=== PATIENT | male | born 1985 | race Caucasian/White ===

== ENCOUNTER 2022-12-06 06:54 | Day surgery (SDC) | payer OTHER, SELFPAY ==
[2022-12-06] VITALS (13 sets, daily range): BP systolic 106–164; BP diastolic 66–105; PULSE 66–98; RESP 12–26; TEMP 36.7–36.8; O2SAT 92–98; BMI 34.0
[2022-12-06 07:12] LABS: Basophils Percent Auto 0.5 % (0.2-2.0); Eosinophils Percent Auto 0.7 % (0.9-7.0); Hematocrit 46.9 % (42.0-54.0); Hemoglobin 16.2 g/dL (14.0-18.0); Immature Granulocytes Abs Auto 0.01 10^3/uL (0.00-0.03); Immature Granulocytes Pct Auto 0.2 % (0.0-0.5); Lymphocytes Absolute Auto 2.8 10^3/uL (1.2-3.8); Lymphocytes Percent Auto 47.4 % (20.5-60.0); Mean Corpuscular HGB Conc 34.5 g/dL (29.9-35.2); Mean Corpuscular Hemoglobin 28.7 pg (25.9-34.0); Mean Platelet Volume 10.3 fL (9.5-13.5); Monocytes Absolute Auto 0.6 10^3/uL (0.3-0.8); Monocytes Percent Auto 9.3 % (1.7-12.0); Neutrophils Absolute Auto 2.5 10^3/uL (1.4-6.5); Neutrophils Percent Auto 41.9 % (43.0-75.0); Nucleated Red Blood Cells 0; Platelet Count 223 10^3/uL (150-450); Red Blood Count 5.65 10^6/uL (4.70-6.10); Red Cell Distribution Width 11.6 % (11.0-15.0); White Blood Count 5.9 10^3/uL (4.0-11.0)
[2022-12-06] MEDS: LACTATED RINGER'S SOLUTION 1,000 ML 50 ML IV (07:56)
--- NOTE | 2022-12-06 09:09 | PC.NURSE ---
Popliteal/ Saphaneous block started at 0849 and completed at 0859; procedure tolerated well
[2022-12-06] MEDS: CEFAZOLIN SODIUM/DEXTROSE,ISO 2 GM/50 ML PIGGYBACK IV (09:37)
--- NOTE | 2022-12-06 10:17 | XR_ITS ---
The [address] [address] Patient Name: BALTA OVIEDO MRN: [id number] date: 1985 Sex: M Assigned Patient Location: [facility] Current Patient Location: [facility] Accession/Order Number: [id number] Exam Date: 12/06/2022 12:30 Report Date: 12/06/2022 12:56 At the request of: MALA ARENAS Procedure: XR ankle RT min 3V PROCEDURE: XR ankle RT min 3V, XR foot RT min 3V HISTORY: stj fusion, post-op COMPARISON: XR ankle right 11/14/2022 FINDINGS: BONES:Talocalcaneal fusion via 2 lag screws. No hardware fracture or bone fracture. SOFT TISSUES:Subcutaneous air within posterior soft tissues consistent with recent surgery. Images were obtained to cast material. EFFUSION:None visible. OTHER: Negative. IMPRESSION: 1. Postop talocalcaneal fusion. Electronically authenticated by: SARAH HOLM Date: 12/06/2022 12:56
--- NOTE | 2022-12-06 10:17 | XR_ITS ---
The [address] [address] Patient Name: BALTA OVIEDO MRN: [id number] date: 1985 Sex: M Assigned Patient Location: [facility] Current Patient Location: [facility] Accession/Order Number: [id number] Exam Date: 12/06/2022 12:30 Report Date: 12/06/2022 12:56 At the request of: MALA ARENAS Procedure: XR foot RT min 3V PROCEDURE: XR ankle RT min 3V, XR foot RT min 3V HISTORY: stj fusion, post-op COMPARISON: XR ankle right 11/14/2022 FINDINGS: BONES:Talocalcaneal fusion via 2 lag screws. No hardware fracture or bone fracture. SOFT TISSUES:Subcutaneous air within posterior soft tissues consistent with recent surgery. Images were obtained to cast material. EFFUSION:None visible. OTHER: Negative. IMPRESSION: 1. Postop talocalcaneal fusion. Electronically authenticated by: SRAAH HOLM Date: 12/06/2022 12:56
--- NOTE | 2022-12-06 11:30 | XR_ITS ---
[place] [id number] Patient Name: BALTA OVIEDO MRN: [id number] date: 1985 Sex: M Assigned Patient Location: [facility] Current Patient Location: Accession/Order Number: [id number] Exam Date: 12/06/2022 10:30 Report Date: 12/06/2022 15:12 At the request of: HAYDE RAMIREZ Procedure: XR ankle RT 2V PROCEDURE: XR ankle RT 2V HISTORY: RIGHT SUBTALAR JOINT FUSION COMPARISON: XR ankle right 11/14/2022 FINDINGS: BONES:Multiple intraoperative spot fluoroscopic images demonstrate posterior talocalcaneal fusion via 2 lag screws. SOFT TISSUES:Expected intraoperative findings. IMPRESSION: 1. Posterior talocalcaneal fusion. Electronically authenticated by: SARAH HOLM Date: 12/06/2022 15:12
[2022-12-06] MEDS: ONDANSETRON 4 MG RAPDIS TABLET SL (13:30)
--- NOTE | 2022-12-06 13:54 | PM.ORONB ---
Brief Operative Note Date of procedure: 12/06/22 Pre-op diagnosis: right subtalar joint arthritis, posterior ankle impingement & os trigonum Post-op diagnosis: same Procedure: Right subtalar joint fusion, excision of os trigonum, application of short leg splint and intraoperative fluoroscopy examination PROCEDURE IN DETAIL: Patient was identified in pre op and consent was reviewed. Correct side and site were identified and marked. Pre-op antibiotics were started. Patient was brought to OR suite and general anesthesia was administered. Tourniquet applied. then the patient was flipped onto the OR table in a well-padded prone position. Operative extremity was prepped and draped in usual sterile fashion. Formal time-out was performed and the foot/ankle were exsanguinated and tourniquet inflated. An incision on the posterior lateral ankle along the peroneal tendons and extending distal to the fibular malleolus was utilized. Combination of sharp and blunt dissection gained access to the subtalar joint while protecting all neurovascular and tendinous structures. All bleeders were tied off or cauterized. Hintermann distractor was used to access the subtalar joint which was prepped with curettes, osteotomes, rongeurs and drill with 2.0 mm drill.The posterior facet was thoroughly prepped. surgical site was irrigated with copious saline multiple times throughout the procedure. Then further dissection along the posterior aspect of the talus was performed any access to a large os trigonum which was isolated and removed with osteotomes and rongeurs while protecting the FHL tendon. Tissue excised during this procedure was passed back table to be sent as specimen to pathology. Sparc bone allograft was packed into the subtalar joint. The distractor was removed. a 3 cm incision was placed on the posterior heel and blunt dissection was taken down to the tuberosity of the calcaneus. Then two guidewires were placed from the tuberosity of the calcaneus across the subtalar joint into the talar body. These guidewires were placed under fluoroscopic guidance. Once position was confirmed on fluoroscopy a cannulated drill was used over the wires followed by 6.5 mm headless cannulated screws of appropriate length. Compression was noted across the subtalar joint and stable fixation was obtained. All sites were flushed with copious saline. Stab incisions and posterior heel incision were closed with nylon suture. The remaining incisions were closed in layers after. The tourniquet was dropped and a prompt hyperemic response was noted. A dry sterile dressing was then applied. A dry sterile dressing consisting of Xeroform on the incisions followed by 4 x 4 gauze, ABDs, and Kerlix were applied. Multiple layers of cast padding were then applied to ensure all bony prominences were well-padded. A plaster posterior splint was then applied which was held in place by Chava wraps. Capillary refill time to all digits was evaluated and had appropriate response. Postoperative plan: Discharge home under family's care Post op instructions provided verbally and written prescription(s) were placed in chart NWB operative foot/ankle x6-8 wks Follow-up in 1 week Implants: Medline 6.5 mm headless screws x2 Anesthesia: other (General & regional) Surgeon: Jaziel Grigsby Oncology Radiation Physician: Danny Joya Estimated blood loss (mL): 10 Pathology: other (os trigonum) Condition: stable Disposition: PACU Preoperative Details Surgery: Right subtalar joint fusion and os trigonum excision Reason for procedure: patient is a 37-year-old male who is had persistent and worsening pain for greater than one year associated with his right foot. He failed to respond to bracing, NSAIDs such as meloxicam and ibuprofen, shoe and activity modification. MRI was obtained which showed a large os trigonum with associated inflammation as well as bone marrow edema of the talus and calcaneus. Due to his failure to respond to nonsurgical care he wished to pursue surgical treatment and he was educated on potential risks and benefits which include but not limited to wound, infection, pain, bleeding, numbness and tingling, blood clot, painful hardware, delayed/nonunion, malunion, and need for additional surgery. Surgeon: Jaziel Grigsby DPM Associated symptoms: Reports none Use of anticoagulation agents: No Patient history: Reports none
[2022-12-06 14:52] LABS: Glucometer 126 mg/dL (74-106)
== END 2022-12-06 15:00 | disposition home or self-care (01) ==
PROVIDERS: PCP Podiatrist Foot & Ankle Surgery; Visit Provider Podiatrist Foot & Ankle Surgery
PROC: (CPT 28120; principal; 2022-12-06 09:30)
DX: M19.071 Primary osteoarthritis, right ankle and foot (principal); Q68.8 Other specified congenital musculoskeletal deformities; I10 Essential (primary) hypertension; M25.871 Other specified joint disorders, right ankle and foot
CPT/HCPCS: 28120; 28725; 36415; 36416; 64445; 64450; 73600; 73610; 73630; 76000; 76942; 82948; 85025; C1713; J1170; J2704

== ENCOUNTER 2022-12-26 09:09 | Outpatient (OUT) | payer OTHER, SELFPAY ==
--- NOTE | 2022-12-26 09:11 | XR_ITS ---
The [address] [address] Patient Name: BALTA OVIEDO MRN: [id number] date: 1985 Sex: M Assigned Patient Location: [facility] Current Patient Location: [facility] Accession/Order Number: [id number] Exam Date: 12/26/2022 09:15 Report Date: 12/26/2022 09:42 At the request of: MALA ARENAS Procedure: XR foot RT min 3V PROCEDURE: XR foot RT min 3V HISTORY: RIGHT FOOT PAIN COMPARISON: XR foot right 12/06/2022 FINDINGS: BONES:Posterior talocalcaneal fusion via 2 lag screws; no hardware fracture or loosening. No bone fracture or dislocation. SOFT TISSUES:No significant soft tissue swelling. Cast material has been removed. EFFUSION:None visible. OTHER: Negative. IMPRESSION: 1. Stable subtalar fusion without evidence of hardware failure or change in alignment. Electronically authenticated by: SARAH HOLM Date: 12/26/2022 09:42
== END 2022-12-26 09:10 ==
LOC: RAD 09:09
PROVIDERS: PCP Podiatrist Foot & Ankle Surgery; Visit Provider Student in an Organized Health Care Education/Training Program
DX: M19.071 Primary osteoarthritis, right ankle and foot (principal)
CPT/HCPCS: 73630

== ENCOUNTER 2023-01-15 09:36 | Outpatient (OUT) | payer OTHER, MEDICAID, SELFPAY ==
--- NOTE | 2023-01-15 09:39 | XR_ITS ---
The [address] [address] Patient Name: BALTA OVIEDO MRN: [id number] date: 1985 Sex: M Assigned Patient Location: [facility] Current Patient Location: [facility] Accession/Order Number: [id number] Exam Date: 01/15/2023 09:39 Report Date: 01/15/2023 11:15 At the request of: JAQUAN RHODES Procedure: XR foot RT min 3V PROCEDURE: XR foot RT min 3V HISTORY: RIGHT FOOT PAIN ; postop subtalar fusion COMPARISON: XR foot right 12/26/2022 FINDINGS: BONES:Fusion of the posterior talocalcaneal joint via 2 lag screws; no appreciable hardware fracture or loosening. No bone fracture or dislocation. SOFT TISSUES:No visible soft tissue swelling. EFFUSION:None visible. OTHER: Negative. XR/XR foot RT min 3V IMPRESSION: 1. Stable subtalar fusion. No evidence of hardware failure or change in alignment. Electronically authenticated by: SARAH HOLM Date: 01/15/2023 11:15
== END 2023-01-15 09:37 | disposition home or self-care (01) ==
LOC: RAD 09:36
PROVIDERS: Visit Provider Physician Assistant
DX: M19.071 Primary osteoarthritis, right ankle and foot (principal)
CPT/HCPCS: 73630

== ENCOUNTER 2023-02-05 09:43 | Outpatient (OUT) | payer OTHER, MEDICAID, SELFPAY ==
--- NOTE | 2023-02-05 09:45 | XR_ITS ---
[address] [address] Patient Name: BALTA OVIEDO MRN: [id number] date: 1985 Sex: M Assigned Patient Location: [facility] Current Patient Location: [facility] Accession/Order Number: [id number] Exam Date: 02/05/2023 09:45 Report Date: 02/05/2023 10:19 At the request of: HAYDE RAMIREZ Procedure: XR foot RT min 3V PROCEDURE: XR foot RT min 3V COMPARISON: 01/15/2023 HISTORY: RIGHT FOOT PAIN FINDINGS: BONES:Stable subtalar joint fusion with 2 cannulated screws. No acute fracture, dislocation or mechanical failure. Mild degenerative change with marginal osteophyte formation in the midfoot. Mild enthesopathic spurring of the calcaneus SOFT TISSUES:Negative. No visible soft tissue swelling. EFFUSION:None visible. OTHER: Negative. XR/XR foot RT min 3V IMPRESSION: Stable subtalar fusion Electronically authenticated by: DELORIS MORA Date: 02/05/2023 10:19
== END 2023-02-05 09:44 | disposition home or self-care (01) ==
LOC: RAD 09:43
PROVIDERS: Visit Provider Podiatrist Foot & Ankle Surgery
DX: M19.071 Primary osteoarthritis, right ankle and foot (principal)
CPT/HCPCS: 73630

== ENCOUNTER 2023-03-26 08:59 | Outpatient (OUT) | payer MEDICAID, SELFPAY ==
--- NOTE | 2023-03-26 | XR_ITS ---
The [address] [address] Patient Name: BALTA OVIEDO MRN: [id number] date: 1985 Sex: M Assigned Patient Location: [facility] Current Patient Location: [facility] Accession/Order Number: [id number] Exam Date: 03/26/2023 09:11 Report Date: 03/26/2023 14:56 At the request of: HAYDE RAMIREZ Procedure: XR foot RT min 3V EXAM: XR foot RT min 3V HISTORY: RIGHT FOOT PAIN . Follow-up study. COMPARISON: 02/05/2023 TECHNIQUE: 3 views of the right foot were obtained. FINDINGS: There is no evidence of an acute fracture or dislocation. 2 screws fixate the subtalar joint, which is narrowed. The joint space remains partially visualized. Deformity at the base of the proximal phalanx of the fifth digit indicates an old injury. There is mild narrowing of the joint spaces in the thumb and the interphalangeal joint spaces. Mild soft tissue swelling and edema is noted diffusely throughout the foot. An osteophyte arises from the plantar aspect of the calcaneus. XR/XR foot RT min 3V IMPRESSION: No acute fracture or dislocation. There is evidence of prior trauma and degenerative change. There is fusion procedure at the subtalar joint, with hardware in place. Osteophytes arise from the posterior calcaneus. The overall appearance is essentially unchanged. Electronically authenticated by: HAYDE WOLF Date: 03/26/2023 14:56
== END 2023-03-26 09:00 | disposition home or self-care (01) ==
LOC: RAD 08:59
PROVIDERS: Visit Provider Podiatrist Foot & Ankle Surgery
DX: M79.671 Pain in right foot (principal)
CPT/HCPCS: 73630

== ENCOUNTER 2023-06-19 15:05 | Outpatient (OUT) | payer MEDICAID, SELFPAY ==
--- NOTE | 2023-06-19 | XR_ITS ---
The [address] [address] Patient Name: BALTA OVIEDO MRN: [id number] date: 1985 Sex: M Assigned Patient Location: [facility] Current Patient Location: Accession/Order Number: [id number] Exam Date: 06/19/2023 15:10 Report Date: 06/21/2023 00:24 At the request of: HAYDE RAMIREZ Procedure: XR foot RT min 3V EXAM: XR foot RT min 3V HISTORY: RIGHT FOOT PAIN COMPARISON: 03/26/2023 TECHNIQUE: 4 view study FINDINGS: Again, 2 screws bridge the posterior subtalar joint. The joint space is partially visualized. Bony architecture is otherwise normal. A plantar calcaneal enthesophyte is noted. Articulations of the midfoot and forefoot are intact. Soft tissues are unremarkable. XR/XR foot RT min 3V IMPRESSION: Stable findings associated with previous subtalar arthrodesis. No acute bone or joint abnormality is otherwise identified. Electronically authenticated by: Neal LAZCANO Date: 06/21/2023 00:24
== END 2023-06-19 15:06 | disposition home or self-care (01) ==
LOC: RAD 15:05
PROVIDERS: Visit Provider Podiatrist Foot & Ankle Surgery
DX: M21.071 Valgus deformity, not elsewhere classified, right ankle (principal)
CPT/HCPCS: 73630